=== PATIENT | male | born 1965 | race Caucasian/White ===

== ENCOUNTER 2023-04-21 12:55 | Emergency (ER) | payer OTHER, MEDICAID, SELFPAY ==
[2023-04-21] VITALS (14 sets, daily range): BP systolic 84–123; BP diastolic 57–81; PULSE 74–96; RESP 13–23; TEMP 36.6; O2SAT 92–98; BMI 29.5
--- NOTE | 2023-04-21 13:03 | DI.RAD.S_ITS ---
PROCEDURE: XR CHEST 1V INDICATIONS: chest pain TECHNIQUE: One view of the chest was acquired. COMPARISON: None. FINDINGS: Surgical changes and devices: None. Lungs and pleura: Lungs are clear. No pleural effusions or pneumothorax. Mediastinum: Mediastinal contours appear normal. Heart size is normal. Bones and chest wall: No suspicious bony lesions. Overlying soft tissues appear unremarkable. IMPRESSION: No acute cardiopulmonary pathology. Dictated by: Sawyer Shah M.D. on 04/21/2023 at 13:50 Approved by: Sawyer Shah M.D. on 04/21/2023 at 13:53
[2023-04-21 13:18] LABS: COVID19 -Nasal RAPID POSITIVE (Negative)
--- NOTE | 2023-04-21 13:51 | ED_ITS ---
HPI - Dizziness General Chief Complaint: Dizziness Stated Complaint: bend over gets lightheaded/N/Dizzy Time Seen by Provider: 04/21/23 13:32 Source: patient Mode of arrival: Ambulatory Limitations: no limitations History of Present Illness HPI Narrative: This is a 57-year-old male with history of hypertension, DVT diagnosed 2-1/2 months ago and started on Eliquis at that time. Patient states he was told to have about 6 months of Eliquis but does not sure of the exact source or cause. Patient states that he is noted some dizziness for the past week. He states it is worse when he bends over or stands quickly. Or lifts something up. Patient states it has been persistent. He has not had any syncopal episodes or passing out but has felt quite lightheaded. Denies fevers or chills he has had a cough with some productive yellow sputum. No hemoptysis. Denies chest pain, denies shortness of breath, he is had some mild nausea but no vomiting. No diarrhea or constipation, no melena or bright red blood. No dysuria urgency or frequency. No new swelling in his extremities. No rash or skin changes. Patient states he had a COVID exposure in the last 1-2 weeks. He does note he is had prior DVT just 1 time before diagnosed who and a half months ago unclear etiology was started on Eliquis and has been taking daily since then. Patient states he had a left knee surgery remotely in the . Denies other surgeries. Was told he is allergic to penicillin from when he was a child, dips snuff, no alcohol, no illicit. His primary care's in [place]. He follows with Hematology Dr. Thomas in [facility]. Related Data Allergies Allergy/AdvReac Type Severity Reaction Status Date / Time Penicillins Allergy Verified 04/21/23 13:03 Review of Systems Review of Systems ROS Unobtainable: All systems reviewed & are unremarkable except as noted in HPI and below Patient History Social History Smoking Status: Unknown if ever smoked Smoking Status: Unknown if ever smoked alcohol intake frequency: holidays/special occasions only Substance Use Type: does not use Exam Narrative Exam Narrative: GENERAL: Alert and oriented x three, male in mild distress. HEENT: Head normocephalic, atraumatic, EOMI, pupils reactive, face symmetric, moist mucous membranes NECK: Supple, full range of motion CARDIOVASCULAR: Regular rate and rhythm without murmurs, rubs or gallops. No JVD. No swelling bilateral lower extremities. RESPIRATORY: Breath sounds equal bilaterally, no wheezes rales or rhonchi. ABDOMEN: Soft, nontender. Normoactive bowel sounds all 4 quadrants. No guarding or rebound, rigidity, no mass : No CVA tenderness EXTREMITIES: Normal range of motion, no clubbing or edema. Neurovascularly intact NEUROLOGICAL: Cranial nerves II through XII grossly intact. Moving all extremities SKIN: Warm, dry, no petechiae, no rashes or lesions. Initial Vital Signs Initial Vital Signs: Vital Signs Temperature 97.9 F 04/21/23 12:56 Pulse Rate 95 H 04/21/23 12:56 Respiratory Rate 15 04/21/23 12:56 Blood Pressure 92/62 04/21/23 12:56 Pulse Oximetry 98 04/21/23 12:56 Oxygen Delivery Method Room Air 04/21/23 12:56 Course Orders Ordered: ED Orders 04/21/23 13:00 COVID19 -Nasal RAPID Stat 04/21/23 13:03 XR chest 1V Stat EKG-12 Lead Stat 04/21/23 13:56 CT angio chest PE protocol Stat 04/21/23 14:10 BNP [NT-proBNP (BNP-Adult 18+)] Stat Complete Blood Count AUTO DIFF Stat Comprehensive Metabolic Panel Stat Lipase Stat Magnesium Stat PTT Partial Thromboplastin Lopez Stat Prothrombin Time INR Stat Troponin & CK Cardiac Panel Stat Discontinued Medications Sodium Chloride (Normal Saline 0.9%) 1,000 mls @ 1,000 mls/hr IV BOLUS ONE Stop: 04/21/23 14:31 Last Infusion: 04/21/23 15:47 Dose: 0 mls/hr Documented By: Admin: 04/21/23 14:24 Dose: 1,000 mls/hr Documented By: RB Vital Signs Vital signs: Vital Signs - 8 hr 04/21/23 12:56 04/21/23 12:59 04/21/23 13:00 Temperature 97.9 F Pulse Rate 95 H Respiratory Rate 15 Blood Pressure 92/62 92/62 Pulse Oximetry 98 92 Oxygen Delivery Method Room Air 04/21/23 13:00 04/21/23 13:16 04/21/23 13:16 Temperature Pulse Rate 96 H 91 H Respiratory Rate 23 21 Blood Pressure 93/62 Pulse Oximetry 97 96 Oxygen Delivery Method 04/21/23 13:30 04/21/23 13:30 04/21/23 13:45 Temperature Pulse Rate 86 88 Respiratory Rate 14 13 Blood Pressure 84/57 L Pulse Oximetry 92 94 Oxygen Delivery Method 04/21/23 13:45 04/21/23 14:00 04/21/23 14:00 Temperature Pulse Rate 84 Respiratory Rate 18 Blood Pressure 100/70 102/69 Pulse Oximetry 96 Oxygen Delivery Method 04/21/23 14:20 04/21/23 14:20 04/21/23 14:30 Temperature Pulse Rate 86 Respiratory Rate 16 Blood Pressure 105/72 107/71 Pulse Oximetry 97 Oxygen Delivery Method 04/21/23 14:30 04/21/23 14:45 04/21/23 14:45 Temperature Pulse Rate 81 79 Respiratory Rate 20 21 Blood Pressure 110/71 Pulse Oximetry 96 96 Oxygen Delivery Method 04/21/23 15:00 04/21/23 15:00 04/21/23 15:15 Temperature Pulse Rate 79 Respiratory Rate 21 Blood Pressure 113/75 111/74 Pulse Oximetry 98 Oxygen Delivery Method 04/21/23 15:15 04/21/23 15:30 04/21/23 15:30 Temperature Pulse Rate 76 74 Respiratory Rate 19 19 Blood Pressure 113/76 Pulse Oximetry 97 97 Oxygen Delivery Method 04/21/23 15:45 04/21/23 15:45 Temperature Pulse Rate 75 Respiratory Rate 19 Blood Pressure 123/81 Pulse Oximetry 97 Oxygen Delivery Method MDM - Dizziness Lab Data 04/21/23 14:10 04/21/23 14:10 Labs: Lab Results 04/21/23 04/21/23 04/21/23 Range/Units 13:00 14:10 14:10 WBC 7.9 (4.5-11.0) X10^3/uL RBC 5.00 (4.5-5.9) X10^6/uL Hgb 15.3 (13.5-17.5) g/dL Hct 45.6 (41-53) % MCV 91.1 (80-100) fL MCH 30.5 (26-34) PG MCHC 33.5 (30-36) % RDW 14.0 (11.6-14.8) % Plt Count 237 (150-400) X10^3/uL Neut % (Auto) 55.2 (50-75) % Lymph % (Auto) 20.8 L (25-40) % Lee % (Auto) 12.8 (3-14) % Eos % (Auto) 10.2 H (2-4) % Baso % (Auto) 1.0 (0-2) % Neut # (Auto) 4400 (4451-1970) /uL Lymph # (Auto) 1700 (7836-4925) /uL Lee # (Auto) 1000 H (0-900) /uL Eos # (Auto) 800 H (0-450) /uL Baso # (Auto) 100 (0-100) /uL PT 14.6 H (10.1-12.7) SECONDS INR 1.3 (0.9-1.3) APTT 35 (26-36) SECONDS Sodium (137-145) mmol/L Potassium (3.4-5.1) mmol/L Chloride (98-107) mmol/L Carbon Dioxide (22-32) mmol/L BUN (9-20) mg/dL Creatinine (0.66-1.25) mg/dL Estimated GFR (>60) mL/min BUN/Creatinine Ratio (6-22) Glucose (70-100) mg/dL Calcium (8.4-10.2) mg/dL Magnesium (1.6-2.3) mg/dL Total Bilirubin (0.2-1.3) mg/dL AST (17-59) IU/L ALT (<50) IU/L Alkaline Phosphatase (38-126) U/L Total Creatine Kinase (55-170) U/L Troponin I (0.01-0.034) ng/mL NT-Pro-B Natriuret Pep (<125) pg/mL Total Protein (6.3-8.2) g/dL Albumin (3.5-5.0) g/dL Globulin (1.7-4.1) g/dL Albumin/Globulin Ratio (1.0-2.8) Lipase (23-300) U/L SARS-CoV-2 (PCR) Positive H (Negative) 04/21/23 04/21/23 Range/Units 14:10 14:10 WBC (4.5-11.0) X10^3/uL RBC (4.5-5.9) X10^6/uL Hgb (13.5-17.5) g/dL Hct (41-53) % MCV (80-100) fL MCH (26-34) PG MCHC (30-36) % RDW (11.6-14.8) % Plt Count (150-400) X10^3/uL Neut % (Auto) (50-75) % Lymph % (Auto) (25-40) % Lee % (Auto) (3-14) % Eos % (Auto) (2-4) % Baso % (Auto) (0-2) % Neut # (Auto) (2936-4387) /uL Lymph # (Auto) (1313-4935) /uL Lee # (Auto) (0-900) /uL Eos # (Auto) (0-450) /uL Baso # (Auto) (0-100) /uL PT (10.1-12.7) SECONDS INR (0.9-1.3) APTT (26-36) SECONDS Sodium 138 (137-145) mmol/L Potassium 4.9 (3.4-5.1) mmol/L Chloride 104 (98-107) mmol/L Carbon Dioxide 26 (22-32) mmol/L BUN 37 H (9-20) mg/dL Creatinine 1.86 H (0.66-1.25) mg/dL Estimated GFR 42 L (>60) mL/min BUN/Creatinine Ratio 19.9 (6-22) Glucose 85 (70-100) mg/dL Calcium 9.3 (8.4-10.2) mg/dL Magnesium 2.2 (1.6-2.3) mg/dL Total Bilirubin 1.1 (0.2-1.3) mg/dL AST 63 H (17-59) IU/L ALT 54 H (<50) IU/L Alkaline Phosphatase 94 (38-126) U/L Total Creatine Kinase 120 (55-170) U/L Troponin I < 0.012 (0.01-0.034) ng/mL NT-Pro-B Natriuret Pep 240 H (<125) pg/mL Total Protein 8.0 (6.3-8.2) g/dL Albumin 4.1 (3.5-5.0) g/dL Globulin 3.9 (1.7-4.1) g/dL Albumin/Globulin Ratio 1.1 (1.0-2.8) Lipase 197 (23-300) U/L SARS-CoV-2 (PCR) (Negative) Imaging Data CT scan - chest: Radiologist's Impression: [address] [address] [address] Scan Report Signed Patient: Stanley Serra MR#: [id number] : 1965 Acct:[id number] Age/Sex: 57 / M Date of Service: 04/21/23 Loc: ED Accession Number: [id number] ?? Procedure: CT angio chest PE protocol Ordering Provider: Mariajose Li D.O. PROCEDURE:? CT ANGIO CHEST PE PROTOCOL ? INDICATIONS:? lightheaded, low BP, +covid, had DVT 2 months ago on eliquis ? TECHNIQUE:? After the administration of intravenous contrast, 2 mm thick sections acquired from the pulmonary apices to the posterior costophrenic angles.? 3-dimensional maximum intensity projection (MIP) coronal and sagittal reformats were then acquired through the thorax.? For radiation dose reduction, the following was used:? automated exposure control, adjustment of mA and/or kV according to patient size.? ? COMPARISON:? [facility], CR, XR CHEST 1V, 04/21/2023, 13:23. ? FINDINGS:? Image quality:? Excellent.? ? Pulmonary arteries:? Pulmonary arteries are normal in size, and demonstrate no intraluminal filling defects to suggest central pulmonary embolism.? ? Lungs and pleura:? Poorly defined areas of ground-glass opacity can be seen, particular involving the left lower lobe.? No pleural effusions or pneumothorax.? Central and peripheral airways are patent.? ? Mediastinum:? Heart size is normal, without pericardial effusion.? No mediastinal or hilar adenopathy.? However, borderline prominent mediastinal lymph nodes are seen.? Thoracic aorta is normal in caliber and enhancement.? Esophagus is normal in caliber, without hiatal hernia.? ? Bones and chest wall:? No suspicious bony lesions.? Ribs and thoracic spine appear intact throughout.? Thyroid gland demonstrates no significant abnormality.? No axillary or supraclavicular adenopathy.? ? Abdomen:? Visualized upper abdominal solid organs appear normal in the early arterial phase of enhancement.? IMPRESSION:? No definite pulmonary embolism can be seen. ? Poorly defined areas of ground-glass opacity can be seen, particularly involving the left lower lobe.? These are nonspecific, although they are compatible with the given clinical history of COVID pneumonia. ? ? Dictated by: Jonh Villalta M.D. on 04/21/2023 at 13:48 ? ? Approved by: Jonh Villalta M.D. on 04/21/2023 at 13:51?? ECG Data Attestation: I personally reviewed and interpreted this ECG as follows: Prior ECG tracings: not available for review Interpretation: Sinus rhythm, premature atrial complex, rate of 91 ND 158 QRS is 70 QTC 432. No acute ST elevation or depression noted. No priors. MDM Narrative Medical decision making narrative: This is a 57-year-old male who presents with complaint of lightheadedness/dizziness, cough with yellow productive sputum. Heart rates in the 90s but patient is hypotensive, started have some improvement without intervention while seated but was given fluids and has had significant improve ment to the 120s to 130s. He states he is feeling improved shows CBC with no anemia normal platelets, lymphs are are low use elevated at 10, electrolytes otherwise normal BUN is 37 creatinine is 1.86, glucose is 85, AST ALT 63 and 54, troponin is negative and bnp is 240. Patient did test positive for COVID. He would recent COVID exposure, patient's sinus rhythm with premature complexes he had a DVT 2 and half months ago has been taking his Eliquis daily but was scan for CT PE which is negative. Patient had ambulation trial is feeling much improved. He is unsure if he is any chronic kidney disease or if this is a new change to his renal function. He states he did have lab work a couple of months ago but not available to us. Discussed with patient he would like to be discharged home. Patient given copy of his labs and asked to contact his physician to make sure his renal function is stable and have repeat testing next several days if not. Patient states he feels comfortable with this plan. Ambulating in department without issue, no additional dizziness and hypertension seems to be resolved. We discussed it continue to hydrate regularly, return precautions and importance of timely follow-up. Patient expresses his understanding. Discharge Plan Departure Patient Disposition: Home Clinical Impression: COVID-19 virus infection, Creatinine elevation Instructions: DI for COVID-19 (Suspected or Confirmed ) Activity Restrictions/Additional Instructions: Follow-up with your physician, your blood pressure was low today but seems to have responded to fluids. Your renal function is decreased your creatinine is 1.86, you may be dehydrated but please check your labs with your physician or have them rechecked in the next 24-48 hours. Continue your home medications as prescribed. Please return for recurrent lightheadedness or passing out, dizziness, chest pain, shortness of breath, new swelling in extremities, coughing up blood, other new or concerning changes. Referrals: Miscellaneous,Doctor, MD [Primary Care Provider] - Stand Alone Forms: Patient Portal/API
--- NOTE | 2023-04-21 13:56 | DI.CT.S_ITS ---
PROCEDURE: CT ANGIO CHEST PE PROTOCOL INDICATIONS: lightheaded, low BP, +covid, had DVT 2 months ago on eliquis TECHNIQUE: After the administration of intravenous contrast, 2 mm thick sections acquired from the pulmonary apices to the posterior costophrenic angles. 3-dimensional maximum intensity projection (MIP) coronal and sagittal reformats were then acquired through the thorax. For radiation dose reduction, the following was used: automated exposure control, adjustment of mA and/or kV according to patient size. COMPARISON: [facility], , XR CHEST 1V, 04/21/2023, 13:23. FINDINGS: Image quality: Excellent. Pulmonary arteries: Pulmonary arteries are normal in size, and demonstrate no intraluminal filling defects to suggest central pulmonary embolism. Lungs and pleura: Poorly defined areas of ground-glass opacity can be seen, particular involving the left lower lobe. No pleural effusions or pneumothorax. Central and peripheral airways are patent. Mediastinum: Heart size is normal, without pericardial effusion. No mediastinal or hilar adenopathy. However, borderline prominent mediastinal lymph nodes are seen. Thoracic aorta is normal in caliber and enhancement. Esophagus is normal in caliber, without hiatal hernia. Bones and chest wall: No suspicious bony lesions. Ribs and thoracic spine appear intact throughout. Thyroid gland demonstrates no significant abnormality. No axillary or supraclavicular adenopathy. Abdomen: Visualized upper abdominal solid organs appear normal in the early arterial phase of enhancement. IMPRESSION: No definite pulmonary embolism can be seen. Poorly defined areas of ground-glass opacity can be seen, particularly involving the left lower lobe. These are nonspecific, although they are compatible with the given clinical history of COVID pneumonia. Dictated by: Jonh Villalta M.D. on 04/21/2023 at 13:48 Approved by: Jonh Villalta M.D. on 04/21/2023 at 13:51
[2023-04-21 14:19] LABS: Add Manual Diff / Slide Review NO; Basophils Absolute Auto 100 /uL (0-100); Eosinophils Absolute Auto 800 /uL (0-450); Eosinophils Percent Auto 10.2 % (2-4); Hematocrit 45.6 % (41-53); Hemoglobin 15.3 g/dL (13.5-17.5); Lymphocytes Absolute Auto 1700 /uL (1100-4500); Lymphocytes Percent Auto 20.8 % (25-40); Mean Corpuscular HGB Conc 33.5 % (30-36); Mean Corpuscular Hemoglobin 30.5 PG (26-34); Mean Corpuscular Volume 91.1 fL (80-100); Monocytes Absolute Auto 1000 /uL (0-900); Monocytes Percent Auto 12.8 % (3-14); Neutrophils Absolute Auto 4400 /uL (1500-7000); Neutrophils Percent Auto 55.2 % (50-75); Platelet Count 237 X10^3/uL (150-400); White Blood Cell Count 7.9 X10^3/uL (4.5-11.0)
[2023-04-21] MEDS: SODIUM CHLORIDE 0.9% 1,000 ML 1000 ML IV (14:24)
[2023-04-21 14:30] LABS: INR 1.3 (0.9-1.3); Prothrombin Time 14.6 SECONDS (10.1-12.7)
[2023-04-21 14:32] LABS: PTT Partial Thromboplastin Tim 35 SECONDS (26-36)
[2023-04-21 14:35] LABS: Alanine Aminotransferase 54 IU/L (<50); Albumin 4.1 g/dL (3.5-5.0); Albumin Globulin Ratio 1.1 (1.0-2.8); Alkaline Phosphatase 94 U/L (38-126); Aspartate Aminotransferase 63 IU/L (17-59); BUN Creatinine Ratio 19.9 (6-22); Bilirubin Total 1.1 mg/dL (0.2-1.3); Blood Urea Nitrogen 37 mg/dL (9-20); Calcium 9.3 mg/dL (8.4-10.2); Carbon Dioxide 26 mmol/L (22-32); Chloride 104 mmol/L (98-107); Creatine Kinase 120 U/L (55-170); Estimated Glomerular Filt Rate 42 mL/min (>60); Globulin 3.9 g/dL (1.7-4.1); Glucose 85 mg/dL (70-100); Lipase 197 U/L (23-300); Magnesium 2.2 mg/dL (1.6-2.3); Potassium 4.9 mmol/L (3.4-5.1); Sodium 138 mmol/L (137-145)
[2023-04-21 14:36] LABS: HEMOLYSIS 84 (0-50)
[2023-04-21 14:44] LABS: NT-proBNP (BNP-Adult 18+) 240 pg/mL (<125)
[2023-04-21 14:46] LABS: Troponin I < 0.012 ng/mL (0.01-0.034)
== END 2023-04-21 16:13 | disposition home or self-care (01) ==
PROVIDERS: Emergency Provider Emergency Medicine
DX: U07.1 COVID-19 (principal); R79.89 Other specified abnormal findings of blood chemistry; I95.9 Hypotension, unspecified
CPT/HCPCS: 36415; 71045; 71275; 80053; 82550; 83690; 83735; 83880; 84484; 85025; 85610; 85730; 87635; 93005; 99284; C9803